=== PATIENT | female | born 1955 | race Caucasian/White ===

== ENCOUNTER 2018-01-03 08:37 | Emergency (ER) | payer OTHER ==
[~2018-01-03] VITALS: Ht 165.1 cm; Wt 75.7 kg
[2018-01-03 08:40] VITALS: BP 130/71; PULSE 78; RESP 16; TEMP 97.6; O2SAT 95
[2018-01-03] MEDS ORDERED: NALT1TAB3 PO (08:44)
[2018-01-03] MEDS ORDERED: ZOLO50TA PO (08:44)
[2018-01-03] MEDS ORDERED: BONI150T PO (08:44)
[2018-01-03] MEDS ORDERED: PANT40TA3 PO (08:44)
[2018-01-03] MEDS ORDERED: BUME1TAB PO (08:44)
--- NOTE | 2018-01-03 09:26 | PD ---
HPI Chief Complaint: Injury Time Seen by Provider: 09:18 Travel History International Travel<30 days: No Contact w/Intl Traveler<30days: No Traveled to known affect area: No History of Present Illness HPI 62-year-old female presents to the emergency department for evaluation of right knee injury that occurred yesterday around 7 PM. She states she slipped and fell in her kitchen, landing on her right knee. She denies any head injury or LOC. No neck pain or back pain. No chest pain or abdominal pain. No vomiting. No hip or pelvic pain. Current pain is 4/10, worse with movement, ambulation. No radiation of pain. Pain is slightly alleviated with keeping the knee still. She has not yet taken in this morning for pain. Moderate severity. PFSH Past Medical History Hx Anticoagulant Therapy: No Diabetes: No Diminished Hearing: No Tetanus Vaccination: Unknown ?: Not Past Surgical History Hysterectomy: Yes Social History Alcohol Use: Yes (VERY RARE) Tobacco Use: No Substance Use: No Allergies-Medications (Allergen,Severity, Reaction): Coded Allergies: Sulfa (Sulfonamide Antibiotics) (Verified Allergy, Unknown, Rash, 01/03/18) acetaminophen (Verified Allergy, Unknown, Itching, 01/03/18) oxycodone (Verified Allergy, Unknown, Itching, 01/03/18) Reported Meds & Prescriptions Reported Meds & Active Scripts Active Reported Bumetanide 1 Mg Tab 1 Mg PO BID Contrave ER 12 HR (Naltrexone HCl-Bupropion ER 12 HR) 8-90 Mg Tab 2 Tab PO BID Pantoprazole (Pantoprazole Sodium) 40 Mg Tab 40 Mg PO DAILY Boniva (Ibandronate Sodium) 150 Mg Tab 150 Mg PO Q28D Zoloft (Sertraline HCl) 50 Mg Tab 50 Mg PO DAILY Review of Systems Except as stated in HPI: all other systems reviewed are Neg Physical Exam Narrative GENERAL: Well-nourished, well-developed female patient, afebrile. SKIN: Focused skin assessment warm/dry. HEAD: Normocephalic. Atraumatic. EYES: No scleral icterus. No injection or drainage. NECK: Supple, trachea midline. No JVD or lymphadenopathy. CARDIOVASCULAR: Regular rate and rhythm without murmurs, gallops, or rubs. Right pedal pulse is 2+. RESPIRATORY: Breath sounds equal bilaterally. No accessory muscle use. Lungs sounds are clear to auscultation. GASTROINTESTINAL: Abdomen soft, non-tender, nondistended. MUSCULOSKELETAL: No cyanosis, or edema. No reproducible tenderness over right knee. However, the pain is reproduced with flexion of the right knee. She has full sensation to the distal right lower extremity. BACK: Nontender without obvious deformity. No CVA tenderness. Data Data Last Documented VS Vital Signs Date Time Temp Pulse Resp B/P (MAP) Pulse Ox O2 Delivery O2 Flow Rate FiO2 01/03/18 08:40 97.6 78 16 130/71 (90) 95 Orders Orders Knee, Complete (4vws) (01/03/18 ) Ibuprofen (Motrin) (01/03/18 09:30) Splint Or Brace Apply/Monitor (01/03/18 10:09) Crutches (01/03/18 10:09) MDM Medical Decision Making Medical Screen Exam Complete: Yes Emergency Medical Condition: Yes Medical Record Reviewed: Yes Interpretation(s) Last Impressions Knee X-Ray 01/03/18 0000 Signed Impressions: Service Date/Time: Wednesday, January 03, 2018 09:36 - CONCLUSION: Unremarkable examination of the right knee. Hayley Sears MD Differential Diagnosis Contusion versus sprain versus fracture versus dislocation Narrative Course 62-year-old female presents to the emergency department for evaluation right knee injury after a slip and fall yesterday evening. X-ray of the right knee is ordered and pending. Patient is given ibuprofen 600 mg by mouth. X-ray of the right knee is unremarkable. Patient is provided thomas bandage. She declines crutches. She is to ice take OTC Tylenol/Ibuprofen as needed for pain and follow up with her PCP. She is to return here for any acute, worsening of symptoms. She verbalizes agreement and understanding. The patient was discharged in stable condition with instructions, including return instructions and follow up instructions. Diagnosis Primary Impression: Contusion of right knee Qualified Codes: S80.01XA - Contusion of right knee, initial encounter Referrals: Primary Care Physician as needed Patient Instructions: General Instructions, Knee Pain (ED) Additional Instructions: Over the counter Tylenol/Ibuprofen as needed for pain. Ice for 20 mins 4-5 times daily. Wear thomas bandage for support. Follow up with your primary care physician. Return to the emergency department for any acute, worsening of symptoms. Med/Other Pt SpecificInfo: No Change to Meds Disposition: 01 DISCHARGE HOME Condition: Stable Nydia Breaux Jan 03, 2018 09:26
[2018-01-03] MEDS ORDERED: IBUPROFEN 600 MG TAB PO ONE (09:30)
--- NOTE | 2018-01-03 09:57 | RADRPT ---
EXAM DATE/TIME: 01/03/2018 09:36 [facility] COMPARISON: No previous studies available for comparison. INDICATIONS : Fell, has right knee pain MEDICAL HISTORY : None. SURGICAL HISTORY : None. ENCOUNTER: Initial ACUITY: 2 days PAIN SCORE: 5/10 LOCATION: Right knee FINDINGS: Four view examination of the right knee demonstrates no evidence of fracture or dislocation. Bony mi neralization is normal. The articular surfaces are intact. The suprapatellar soft tissues have a no rmal configuration. CONCLUSION: Unremarkable examination of the right knee. Hayley Sears MD on January 03, 2018 at 9:54 Board Certified Radiologist. This report was verified electronically.
== END 2018-01-03 10:19 | disposition home or self-care (01) ==
LOC: PHEFT 08:37
DX: S80.01XA Contusion of right knee, initial encounter (principal); W01.0XXA Fall on same level from slipping, tripping and stumbling without subsequent striking against object, initial encounter; Y92.000 Kitchen of unspecified non-institutional (private) residence as the place of occurrence of the external cause
CPT/HCPCS: 73564; 99283; E0113